=== PATIENT | female | born 1990 | race American Indian/Alaskan Native ===

== ENCOUNTER 2016-11-12 15:47 | Emergency (ER) | payer MEDICAID, OTHER ==
[~2016-11-12] VITALS: Ht 167.6 cm; Wt 67.8 kg
[2016-11-12] MEDS ORDERED: SODIUM CHLORIDE FLUSH 10ML SYR IVF ONE (16:30)
[2016-11-12] MEDS ORDERED: SODIUM CHLORIDE 0.9% 1,000ML IVBOLUS ONE (16:30)
[2016-11-12] MEDS ORDERED: ONDANSETRON 2MG/ML, 2ML IVPush ONE (16:30)
[2016-11-12] MEDS ORDERED: HYDROmorphone 1 MG/ML, 1ML ONE ×2 (16:41→17:17)
[2016-11-12] MEDS ORDERED: ONDANSETRON 2MG/ML, 2ML ONE (16:42)
[2016-11-12] MEDS: HYDROmorphone 1 MG/ML, 1ML IVPush PRN ×2 (16:47→17:35)
[2016-11-12 16:51] LABS: HEMOGLOBIN 17.7 g/dL (11.7-16.4)
[2016-11-12] MEDS ORDERED: LORazepam 2 MG/ML, 1ML IVPush ONE (17:00)
[2016-11-12] MEDS ORDERED: LORazepam 2 MG/ML, 1ML ONE (17:18)
[2016-11-12 18:49] LABS: GLUCOSE, CSF 52 mg/dL (40-80)
[2016-11-12] MEDS ORDERED: KETOROLAC 30 MG/1 ML IVPush ONE (19:30)
[2016-11-12] MEDS ORDERED: KETOROLAC 30 MG/1 ML ONE (19:36)
[2016-11-12 20:09] VITALS: BP 112/54
== END 2016-11-12 20:13 | disposition home or self-care (01) ==
LOC: ED 20:07
DX: J01.00 Acute maxillary sinusitis, unspecified (principal); J01.20 Acute ethmoidal sinusitis, unspecified; F12.10 Cannabis abuse, uncomplicated
CPT/HCPCS: 36415; 70450; 72125; 82945; 84157; 85025; 87070; 87205; 89051; 96361; 96374; 96375; 96376; 99285; J1170; J1885; J2060; J2405; J7030

== ENCOUNTER 2019-07-13 17:51 | Emergency (ER) | payer OTHER ==
[~2019-07-13] VITALS: Ht 167.6 cm; Wt 66.0 kg
--- NOTE | 2019-07-13 18:20 | NUR ---
first contact with pt. pt states "My lung on this side hurts" Right sided "lung" pain. pt's aox4. resps even and unlabored.
[2019-07-13] MEDS ORDERED: KETOROLAC 30 MG/1 ML ONE (19:26)
[2019-07-13] MEDS ORDERED: KETOROLAC 30 MG/1 ML IM ONE (19:30)
[2019-07-13 20:03] VITALS: BP 131/64
== END 2019-07-13 20:04 | disposition home or self-care (01) ==
LOC: ED 19:45
DX: M94.0 Chondrocostal junction syndrome [Tietze] (principal); Z88.2 Allergy status to sulfonamides
CPT/HCPCS: 71046; 93005; 96372; 99283; J1885

== ENCOUNTER 2019-11-20 23:18 | Emergency (ER) | payer OTHER ==
[~2019-11-20] VITALS: Ht 167.6 cm; Wt 70.4 kg
[2019-11-20 23:21] VITALS: BP 127/83
--- NOTE | 2019-11-20 23:25 | NUR ---
pt ambulates from triage to room with steady gait.
[2019-11-21] MEDS ORDERED: IBUPROFEN 800 MG TABLET PO ONE
[2019-11-21] MEDS ORDERED: IBUPROFEN 800 MG TABLET ONE (00:08)
== END 2019-11-21 00:22 | disposition home or self-care (01) ==
LOC: ED 11-21 00:15
DX: H66.011 Acute suppurative otitis media with spontaneous rupture of ear drum, right ear (principal); F17.200 Nicotine dependence, unspecified, uncomplicated
CPT/HCPCS: 99283

== ENCOUNTER 2020-03-27 13:10 | Emergency (ER) | payer MEDICAID, OTHER ==
[~2020-03-27] VITALS: Ht 167.6 cm; Wt 70.0 kg
--- NOTE | 2020-03-27 14:04 | NUR ---
LUÍS MASSEY AT BS NOW.
[2020-03-27] MEDS ORDERED: LIDOCAINE 1%-EPI 1:100K, 20ML ONE (14:05)
--- NOTE | 2020-03-27 14:07 | NUR ---
ERP INJECTING LIDO WITH EPI TO L UPPER LEG LAC AT THIS TIME.
[2020-03-27] MEDS ORDERED: DIPH,PERTUSS(ACELL),TET VAC/PF 0.5 ML IM-VACC ONE ×2 (14:30→15:25)
[2020-03-27] MEDS ORDERED: LIDOCAINE 1%-EPI 1:100K, 20ML SQ ONE (14:30)
--- NOTE | 2020-03-27 14:45 | NUR ---
L THIGH LACERATION WAS IRRIGATED BY IMAGING ENGINEER AND ER PA WAS IN TO REASSESS. WAITING FOR SUTURING SUPPLIES FROM CENTRAL SUPPLY.
[2020-03-27] MEDS ORDERED: NEOSPORIN OINT. PKT 1 PACKET ONE (15:25)
[2020-03-27 15:40] VITALS: BP 123/90
--- NOTE | 2020-03-27 15:43 | NUR ---
L THIGH LACERATION SUTURED BY ERP, PT TOLERATED WELL. ANTIBIOTIC OINTMENT APPLIED, COVERED WITH ADAPTIC, GAUZE, KERLIX WRAP. D/C INSTRUCTIONS & F/U APPT RV'WD WITH PT, SHE VERBALIZES UNDERSTANDING. PT AMBULATED OUT OF ED WITH FRIEND WITHOUT DIFFICULTY.
== END 2020-03-27 15:43 | disposition home or self-care (01) ==
LOC: ED 15:34
DX: S71.112A Laceration without foreign body, left thigh, initial encounter (principal); X58.XXXA Exposure to other specified factors, initial encounter; Y93.89 Activity, other specified; Y92.098 Other place in other non-institutional residence as the place of occurrence of the external cause; Y99.8 Other external cause status
CPT/HCPCS: 12032; 90471; 90715; 99284; J3490